=== PATIENT | male | born 1965 | race Caucasian/White ===

== ENCOUNTER → 2019-03-10 | Outpatient (CLI) | payer OTHER ==
--- NOTE | 2019-03-10 16:17 | RAD ---
SHOULDER 2+V RIGHT History: Right shoulder pain. Technique: 3 views right shoulder. Comparison: None. Findings: Normal glenohumeral and acromioclavicular joints. No fracture. Soft tissues unremarkable. Chronic right lateral first rib fracture. Impression: 1. No acute osseous abnormality. 2. Chronic right lateral first rib fracture. Electronically signed by: Travis Kiser DO (03/10/2019 4:14 PM) [facility]
== END | disposition home or self-care (01) ==
LOC: DXRAD 09:07
PROVIDERS: ATTEND Nurse Practitioner Family
DX: M84.48XA Pathological fracture, other site, initial encounter for fracture (principal)
CPT/HCPCS: 73030

== ENCOUNTER 2020-08-22 15:13 | Emergency (ER) | payer SELFPAY ==
[~2020-08-22] VITALS: Ht 180.3 cm; Wt 63.6 kg
[2020-08-22] MEDS ORDERED: IV NORMAL SALINE 1,000ML 1,000 ML IV ONE (15:45)
[2020-08-22] MEDS ORDERED: IOHEXOL 300 MG/ML 75 ML VIAL. IV ONE (15:45)
--- NOTE | 2020-08-22 15:57 | PHYS DOC ---
Past History Past Medical History: COPD (ROBERT MERRILL APRN) Additional Past Surgical Histo: leg fx, vasectomy, (ROBERT MERRILL APRN) Alcohol Use: Occasionally (ROBERT MERRILL APRN) General Adult EDM: Chief Complaint: ABSCESS HPI: HPI: Patient is a 54 year old male who presents with states about a year ago he went to [facility] who sent him to [facility] for hard, tender and movable lymph nodes on the right side of his neck. He states that they wanted him to follow-up with cancer center but he did not have the money and he does not insurance was unable to do this. He states they are hurting and he is feeling disoriented as if he cannot walk straight. Patient is homeless. He has a history of COPD, vasectomy and is a smoker. He rates his throbbing pain an 8 out of 10 and states that it does radiate up into the bottom of his tongue. (ROBERT MERRILL APRN) Review of Systems: Review of Systems: Constitutional: Denies fever or chills Eyes: Denies change in visual acuity HENT: Denies nasal congestion or sore throat Respiratory: Denies cough or shortness of breath Cardiovascular: Denies chest pain or edema GI: Denies abdominal pain, nausea, vomiting, bloody stools or diarrhea : Denies dysuria Musculoskeletal: Denies back pain or joint pain. + Neck pain Integument: Denies rash. +Hard tender lumps to the left neck Neurologic: Denies headache, focal weakness or sensory changes Endocrine: Denies polyuria or polydipsia Lymphatic: Denies swollen glands Psychiatric: Denies depression or anxiety (ROBERT MERRILL APRN) Current Medications: Current Meds: Current Medications Medications (Trade) Dose Ordered Sig/Kailyn Start Time Stop Time Status Last Admin Dose Admin Fentanyl Citrate (Fentanyl 2ml Vial) 50 mcg 1X ONCE 08/22/20 15:45 08/22/20 15:46 DC Iohexol (Omnipaque 300 Mg/ml) 75 ml 1X ONCE 08/22/20 15:45 08/22/20 15:46 DC Sodium Chloride 1,000 ml @ 1,000 mls/hr 1X ONCE 08/22/20 15:45 08/22/20 16:44 (ROBERT MERRILL APRN) Allergies: Allergies: Allergies Coded Allergies Type Severity Reaction Last Updated Verified No Known Drug Allergies 08/22/20 No (ROBERT MERRILL APRN) Physical Exam: PE: Constitutional: Well developed, well nourished, no acute distress, non-toxic appearance. [] HENT: Normocephalic, atraumatic, bilateral external ears normal, oropharynx moist, no oral exudates, nose normal. [] Eyes: PERRLA, EOMI, conjunctiva normal, no discharge. [] Neck: Normal range of motion, no tenderness, supple, no stridor. [] Cardiovascular:Heart rate regular rhythm, no murmur [] Lungs & Thorax: Bilateral breath sounds clear to auscultation [] Abdomen: Bowel sounds normal, soft, no tenderness, no masses, no pulsatile masses. [] Skin: Warm, dry, no erythema, no rash. Patient has a right neck large quarter sized raised, tender, hard and mobile nodule. He has 1 smaller 1 that is father down the neck and another one that goes right under the right side of his chin. [] Back: No tenderness, no CVA tenderness. [] Extremities: No tenderness, no cyanosis, no clubbing, ROM intact, no edema. [] Neurologic: Alert and oriented X 3, normal motor function, normal sensory function, no focal deficits noted. [] Psychologic: Affect normal, judgement normal, mood normal. [] (ROBERT MERRILL APRN) Current Patient Data: Vital Signs: Vital Signs Date Time Temp Pulse Resp B/P (MAP) Pulse Ox O2 Delivery O2 Flow Rate FiO2 08/22/20 15:33 98.7 75 18 136/78 (97) 97 Room Air [facility] EKG: EK and read by Dr. Light as sinus rhythm and no STEMI [] ([facility]) Radiology/Procedures: Radiology/Procedures: [] Impressions: [place] [address] IMAGING REPORT Signed PATIENT: XOCHILT MOJICA AACCOUNT: [id number] : 1965 LOCATION: ER AGE: 54 SEX: M EXAM STATUS: REG ER ORD. PHYSICIAN: ROBERT MERRILL APRN REASON: stumbling, disorientation PROCEDURE: CT HEAD WO CONTRAST CT HEAD INDICATION: stumbling, disorientation COMPARISON: None Available. Exposure: One or more of the following individualized dose reduction techniques were utilized for this examination: 1. Automated exposure control 2. Adjustment of the mA and/or kV according to patient size 3. Use of iterative reconstruction technique TECHNIQUE: 5 mm contiguous axial images were obtained from the skull base to the vertex in both bone and soft tissue algorithm. FINDINGS: No abnormal attenuation within the brain parenchyma. No evidence of acute intracranial hemorrhage. No extra-axial fluid collections. No mass effect or midline shift. Ventricular size is appropriate. Basal cisterns are patent. No fractures identified.Gross-white differentiation is preserved.Globes and orbits are within normal limits. Small amount of fluid in the left maxillary sinus. IMPRESSION: No acute intracranial findings. MRI can be considered for further evaluation. Electronically signed by: Danilo Holt MD (08/22/2020 4:14 PM) [id number] DICTATED AND SIGNED BY: DANILO HOLT MD DATE: 08/22/20 1609 CC: ROBERT MERRILL APRN; PCP,NO ~MTH0 [address] [place] [address] IMAGING REPORT Signed PATIENT: XOCHILT MOJICA AACCOUNT: [id number] : 1965 LOCATION: ER AGE: 54 SEX: M EXAM STATUS: REG ER ORD. PHYSICIAN: ROBERT MERRILL APRN REASON: hard painful lymph nodes PROCEDURE: CT SOFT TISSUE NECK W/CONTRAST Exam: CT neck with contrast INDICATION: Hard painful lymph node TECHNIQUE: Sequential axial images through the neck obtained following the administration of 75 mL of Isovue-370 IV contrast. Sagittal and coronal reformatted images were reconstructed from the axial data and reviewed. Comparisons: None FINDINGS: Visualized intracranial structures are unremarkable. Globes and intraorbital contents are normal. Mild mucosal thickening of the left maxillary sinus. There is nonopacification of the right internal jugular vein as it runs along the posterior aspect of the right parotid gland. There is heterogenous masslike enlargement of the posterior aspect of the right parotid gland which measures approximately 4.4 x 3.3 cm. There is no adjacent pathologically enlarged lymph node which measures approximately 2.3 cm. There is mild skin thickening and stranding surrounding the right parotid gland. Thyroid and other salivary glands are unremarkable. There numerous prominent/pathologically enlarged lymph nodes in the right cervical region. No suspicious osseous lesions or acute fractures. IMPRESSION: 1. 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 Recommend correlation with tissue sampling. 2. Numerous adjacent pathologically enlarged lymph nodes, favored represent metastatic disease. 3. Nonopacification of the right internal jugular vein as it runs along the posterior surface of the right parotid gland, likely occluded at this level. Exposure: One or more of the following in the visualized dose reduction techniques were utilized for this examination: 1. Automated exposure control 2. Adjustment of the MA and/or KV according to patient size 3. Use of iterative of reconstructive technique Electronically signed by: Thang Jurado MD (08/22/2020 4:30 PM) [facility] DICTATED AND SIGNED BY: THANG JURADO MD DATE: 08/22/20 161 CC: ROBERT MERRILL APRN; PCP,NO ~MTH0 0 (ROBERT MERRILL APRN) Heart Score: C/O Chest Pain: No Risk Factors: Risk Factors: DM, Current or recent (<one month) smoker, HTN, HLP, family history of CAD, obesity. Risk Scores: Score 0 - 3: 2.5% MACE over next 6 weeks - Discharge Home Score 4 - 6: 20.3% MACE over next 6 weeks - Admit for Clinical Observation Score 7 - 10: 72.7% MACE over next 6 weeks - Early Invasive Strategies (ROBERT MERRILL APRN) Course & Med Decision Making: Course & Med Decision Making Pertinent Labs and Imaging studies reviewed. (See chart for details) See HPI. Patient has a right neck large quarter sized raised, tender, hard and mobile nodule. He has 1 smaller 1 that is father down the neck and another one that goes right under the right side of his chin. Ambulatory with a steady gait although patient states that he is unsteady on his feet and feels slightly di soriented. Nodules are skin colored. Alert and oriented x4. Speaks in full clear sentences. Skin pink warm and dry. Patient denies chest pain, shortness of breath, fever, abdominal pain, nausea, vomiting, diarrhea, headache, dizziness, blurred vision, focal weakness, numbness or tingling, syncope. IMPRESSION: 1. 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 Recommend correlation with tissue sampling. 2. Numerous adjacent pathologically enlarged lymph nodes, favored represent metastatic disease. 3. Nonopacification of the right internal jugular vein as it runs along the posterior surface of the right parotid gland, likely occluded at this level. Due to the patient being homeless and cannot get follow-up care patient will be admitted to the hospital so he can get proper care and follow-up. Patient is also in intractable pain at this time. Patient is admitted by Dr. Watkins at [facility]. [] (ROBERT MERRILL APRN) Dragon Disclaimer: Dragon Disclaimer: This electronic medical record was generated, in whole or in part, using a voice recognition dictation system. (ROBERT MERRILL APRN) Departure Departure: Impression: Primary Impression: Parotid mass Additional Impression: Jugular vein occlusion, right Disposition: 02 [facility]ORT TERM [facility]OSP[facility] ([facility] Condition: STABLE Referrals: PCP,NO (PCP) Attending Signature Attending Signature I have reviewed the PA/HARNESSMAKER APPRENTICE's note and plan of care. I was available for consultation as needed during the patient's visit in the emergency department. I agree with the clinical impression, plan, and disposition. (YUNIOR LIGHT DO) ROBERT MERRILL APRN Aug 22, 2020 15:57 YUNIOR LIGHT DO Aug 23, 2020 00:56
[2020-08-22 16:16] LABS: BASO # 0.1 x10^3/uL (0.0-0.2); BASO % 1 % (0-3); EOS # 0.5 x10^3/uL (0.0-0.7); EOS % 4 % (0-3); HEMATOCRIT 41.6 % (39.0-53.0); HEMOGLOBIN 13.7 g/dL (13.0-17.5); LYMPH % 24 % (24-48); MEAN CORPUSCULAR HEMOGLOBIN 30 pg (25-35); MEAN CORPUSCULAR HGB CONC 33 g/dL (31-37); MEAN CORPUSCULAR VOLUME 91 fL (79-100); MONO # 1.1 x10^3/uL (0.0-1.1); MONO % 9 % (0-9); NEUT # 7.7 x10^3uL (1.8-7.7); NEUT % 62 % (31-73); PLATELET COUNT 272 x10^3/uL (140-400); RED BLOOD COUNT 4.56 x10^6/uL (4.30-5.70); RED CELL DISTRIBUTION WIDTH 14.5 % (11.5-14.5); WHITE BLOOD COUNT 12.5 x10^3/uL (4.0-11.0)
--- NOTE | 2020-08-22 16:16 | RAD ---
CT HEAD INDICATION: stumbling, disorientation COMPARISON: None Available. Exposure: One or more of the following individualized dose reduction techniques were utilized for thi s examination: 1. Automated exposure control 2. Adjustment of the mA and/or kV according to patient size 3. Use of iterative reconstruction technique TECHNIQUE: 5 mm contiguous axial images were obtained from the skull base to the vertex in both bone and soft tissue algorithm. FINDINGS: No abnormal attenuation within the brain parenchyma. No evidence of acute intracranial hemorrhage. No extra-axial fluid collections. No mass effect or midline shift. Ventricular size is appropriate. Basal cisterns are patent. No fractures identified.Gross-white differentiation is preserved.Globes and orbits are within normal l imits. Small amount of fluid in the left maxillary sinus. IMPRESSION: No acute intracranial findings. MRI can be considered for further evaluation. Electronically signed by: Danilo Holt MD (08/22/2020 4:14 PM) [id number]
[2020-08-22 16:29] LABS: CALCIUM 8.9 mg/dL (8.5-10.1); CREATININE 0.9 mg/dL (0.7-1.3); GFR 88.6; POTASSIUM 3.9 mmol/L (3.5-5.1)
--- NOTE | 2020-08-22 16:32 | RAD ---
Exam: CT neck with contrast INDICATION: Hard painful lymph node TECHNIQUE: Sequential axial images through the neck obtained following the administration of 75 mL of Isovue-370 IV contrast. Sagittal and coronal reformatted images were reconstructed from the axial da ta and reviewed. Comparisons: None FINDINGS: Visualized intracranial structures are unremarkable. Globes and intraorbital contents are normal. Mild mucosal thickening of the left maxillary sinus. There is nonopacification of the right internal jugular vein as it runs along the posterior aspect of the right parotid gland. There is heterogenous masslike enlargement of the posterior aspect of the right parotid gland which m easures approximately 4.4 x 3.3 cm. There is no adjacent pathologically enlarged lymph node which julieth sures approximately 2.3 cm. There is mild skin thickening and stranding surrounding the right parotid gland. Thyroid and other salivary glands are unremarkable. There numerous prominent/pathologically enlarged lymph nodes in the right cervical region. No suspicious osseous lesions or acute fractures. IMPRESSION: 1. 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 Recommend correlation with tissue sampling. 2. Numerous adjacent pathologically enlarged lymph nodes, favored represent metastatic disease. 3. Nonopacification of the right internal jugular vein as it runs along the posterior surface of the right parotid gland, likely occluded at this level. Exposure: One or more of the following in the visualized dose reduction techniques were utilized for this examination: 1. Automated exposure control 2. Adjustment of the MA and/or KV according to patient size 3. Use of iterative of reconstructive technique Electronically signed by: Thang Brewer MD (08/22/2020 4:30 PM) [facility]
[2020-08-22 16:35] LABS: ALBUMIN 3.7 g/dL (3.4-5.0); ALBUMIN/GLOBULIN RATIO 1.1 (1.0-1.7); TOTAL BILIRUBIN 0.2 mg/dL (0.2-1.0); TOTAL PROTEIN 7.2 g/dL (6.4-8.2)
--- NOTE | 2020-08-22 17:14 | EKG ---
[address] [address] Test Date: 2020-08-22 Test Time: 17:08:12 Pat Name: XOCHILT MOJICA Department: Room: Gender: M Traveling Crane Operator: JEFFREY : 1965 Requested By: ROBERT MERRILL Order Number: [id number] Reading MD: Measurements Intervals [place] Rate: 56 P: 90 WI: 178 QRS: -59 QRSD: 92 T: 68 QT: 388 QTc: 377 Interpretive Statements SINUS RHYTHM ABNORMAL LEFT AXIS DEVIATION LEFT ANTERIOR FASCICULAR BLOCK T ABNORMALITY IN HIGH LATERAL LEADS ABNORMAL ECG RI6.02 No previous ECG available for comparison
[2020-08-22] MEDS ORDERED: NICOTINE 21MG PATCH. TD ONE (17:45)
[2020-08-22 20:53] VITALS: BP 143/99
[2020-08-22 21:17] LABS: % EOS 7 % (0-5); % LYMPHS 26 % (24-48); % MONOS 9 % (0-10); % SEGS 58 % (35-66); PLT ESTIMATE ADEQUATE (ADEQUATE)
== END 2020-08-22 21:00 | disposition short-term general hospital (02) ==
LOC: ER 15:13
DX: I82.C11 Acute embolism and thrombosis of right internal jugular vein (principal); K11.8 Other diseases of salivary glands; J44.9 Chronic obstructive pulmonary disease, unspecified; Z59.0 Homelessness
CPT/HCPCS: 36415; 70450; 70491; 80053; 84484; 85007; 85025; 93005; 96361; 96374; 96376; 99285; J3010; J7030; Q9967